=== PATIENT | female | born 1985 | race Caucasian/White ===

== ENCOUNTER 2017-10-09 17:08 | Emergency (ER) | payer OTHER ==
[~2017-10-09] VITALS: Ht 160 cm; Wt 78.9 kg
[~2017-10-09 17:08] MED LIST: ASPIRIN EC81 MG PO; DULCOLAX5 MG PO; FOLIC ACID1 MG PO; IBUPROFEN800 MG PO; NORCO 5-325 TA1 EACH PO; NORCO 7.5-3251 EACH PO; PERCOCET 5-3251 EACH PO; PRENATAL-FOLIC1 EACH PO
--- NOTE | 2017-10-10 21:21 | EKG ---
[facility] [address] [facility] [place] [address] Signed Sinus rhythm with occasional premature ventricular complexes and premature atrial complexes Otherwise normal ECG No previous ECGs available Confirmed by ALONSO TOTH MD ([id number]) on 10/10/2017 9:21:12 PM Electronically Signed By: ALONSO TOTH MD 10/10/172120 PATIENT NAME: CHRIS UNDERWOOD Electrocardiogram DATE OF : 83 PHYSICIAN: ALONSO TOTH MD REPORT #: [id number] REPORT IS CONFIDENTIAL AND NOT TO BE RELEASED WITHOUT AUTHORIZATION
== END 2017-10-09 19:13 | disposition home or self-care (01) ==
LOC: ED 17:08
DX: R07.81 Pleurodynia (principal); Z90.710 Acquired absence of both cervix and uterus; Z98.51 Tubal ligation status; Z88.0 Allergy status to penicillin; Z79.82 Long term (current) use of aspirin
CPT/HCPCS: 71045; 80053; 84484; 85025; 85379; 93005; 93010; 96374; 99284; J2405

== ENCOUNTER 2017-10-24 19:33 | Emergency (ER) | payer OTHER ==
[~2017-10-24] VITALS: Ht 160 cm; Wt 78.9 kg
[2017-10-24] MEDS ORDERED: ASPIRIN325 MG PO (19:48)
--- NOTE | 2017-10-25 13:23 | EKG ---
[facility] [address] [facility] [place] [address] Signed Normal sinus rhythm with sinus arrhythmia Normal ECG When compared with ECG of 09-OCT-2017 17:17, premature ventricular complexes are no longer present premature atrial complexes are no longer present Confirmed by ALONSO TOTH MD ([id number]) on 10/25/2017 1:23:39 PM Electronically Signed By: ALONSO TOTH MD 10/25/17 1323 PATIENT NAME: CHRIS UNDERWOOD Electrocardiogram DATE OF : 83 PHYSICIAN: ALONSO TOTH MD REPORT #: [id number] REPORT IS CONFIDENTIAL AND NOT TO BE RELEASED WITHOUT AUTHORIZATION
== END 2017-10-24 22:30 | disposition home or self-care (01) ==
LOC: ED 19:33
DX: R07.89 Other chest pain (principal); Z88.0 Allergy status to penicillin; Z79.82 Long term (current) use of aspirin
CPT/HCPCS: 0296T; 0297T; 0298T; 71260; 80053; 84484; 85025; 93005; 93010; 99284; Q9967

== ENCOUNTER 2019-03-04 11:56 | Emergency (ER) | payer OTHER ==
[~2019-03-04] VITALS: Ht 160 cm; Wt 79.4 kg
[~2019-03-04 11:56] MED LIST changes: +ASPIRIN325 MG PO; +EPIDIOLEX100 MG/1 M PO; +FISH OIL + D31 EACH PO; +VITAMIN D31000 UNIT PO
--- NOTE | 2019-03-04 15:42 | EKG ---
[facility] [address] [facility] [place], [place] [address] Signed Sinus bradycardia with marked sinus arrhythmia Otherwise normal ECG When compared with ECG of 24-OCT-2017 19:38, QT has shortened Confirmed by GRIFFIN KO DO ([id number]) on 03/04/2019 3:41:47 PM Electronically Signed By: GRIFFIN KO DO 03/04/19 1542 PATIENT NAME: CHRIS UNDERWOOD Electrocardiogram DATE OF : 83 PHYSICIAN: GRIFFIN KO DO REPORT #: [id number] REPORT IS CONFIDENTIAL AND NOT TO BE RELEASED WITHOUT AUTHORIZATION
--- NOTE | 2019-03-05 18:51 | EKG ---
[facility] [address] [facility] [place], [place] [address] Signed Sinus bradycardia with marked sinus arrhythmia Otherwise normal ECG When compared with ECG of 04-MAR-2019 12:12, No significant change was found Confirmed by GRIFFIN KO DO ([id number]) on 03/05/2019 6:51:16 PM Electronically Signed By: GRIFFIN KO DO 03/05/191850 PATIENT NAME: CHRIS UNDERWOOD EH Electrocardiogram DATE OF : 83 PHYSICIAN: GRIFFIN KO DO REPORT #: [id number] REPORT IS CONFIDENTIAL AND NOT TO BE RELEASED WITHOUT AUTHORIZATION
== END 2019-03-04 16:36 | disposition home or self-care (01) ==
LOC: ED 11:56
DX: R07.89 Other chest pain (principal); Z88.0 Allergy status to penicillin; Z90.710 Acquired absence of both cervix and uterus
CPT/HCPCS: 71045; 80053; 83735; 84484; 85025; 85379; 93005; 93010; 99285-25

== ENCOUNTER 2023-09-17 16:35 | Emergency (ER) | payer BC ==
[~2023-09-17] VITALS: Ht 160 cm; Wt 87.5 kg
[2023-09-17] MEDS ORDERED: METHOCARBAMOL750 MG PO (19:25)
[2023-09-17 20:55] VITALS: BP 123/79
== END 2023-09-17 20:55 | disposition home or self-care (01) ==
LOC: ED 16:35
DX: S33.5XXA Sprain of ligaments of lumbar spine, initial encounter (principal); D68.51 Activated protein C resistance; Z88.0 Allergy status to penicillin; W03.XXXA Other fall on same level due to collision with another person, initial encounter; Y93.23 Activity, snow (alpine) (downhill) skiing, snowboarding, sledding, tobogganing and snow tubing
CPT/HCPCS: 72100; 72170; 96372; 99283-25; A9270; J1885